=== PATIENT | female | born 1960 | race Caucasian/White ===

== ENCOUNTER → 2018-06-05 07:43 | Outpatient (CLI) | payer BC, SELFPAY ==
--- NOTE | 2018-06-05 10:40 | NEURO ---
NCS and/or EMG Patient Report Ordering Doctor: diogenes, DATE OF SERVICE: 06/05/18 This is a left lower extremity EMG and nerve conduction study performed on this 58-year-old female referred by podiatry for pain in her left foot just distal to the left medial malleolus. The pain is intermittent without exacerbating or remitting factors. She is healthy otherwise without a history of diabetes or significant alcohol intake. 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 Left lower extremity sensory and motor nerve conduction studies are performed. The sural sensory response is normal. The left lateral plantar sensory response is absent, the medial plantar response is present and normal. The common peroneal motor conduction velocities are mildly slowed with mild to moderate prolongation of latencies and mild to moderate reduction of amplitudes. The tibial motor response is mildly prolonged but is otherwise normal. F-wave latencies are mildly prolonged from the tibial and common peroneal nerve and the tibial H reflexes bilaterally are reduced in amplitude. Left lower extremity EMG was performed. Muscles evaluated included the extensor digit torn brevis, abductor houses, medial gastrocnemius, anterior tibialis, vastus lateralis and vastus medialis muscles. Small muscles in the feet did demonstrate large motor units but pathologic spontaneous activity was absent in all muscles tested. All other muscles demonstrated normal insertional activity with absence of pathologic spontaneous activity. There is no evidence of radiculopathy. Impression: This is an abnormal electrophysiologic study of the left lower extremity most consistent with a mild to moderate peripheral neuropathy likely idiopathic in the absence of other factors.
== END ==
PROVIDERS: Family Provider Physician Assistant Medical; PCP Physician Assistant Medical
DX: M79.672 Pain in left foot (principal); R20.2 Paresthesia of skin; M77.32 Calcaneal spur, left foot
CPT/HCPCS: 95886; 95910